=== PATIENT | female | born 1940 | race Two or more races ===

== ENCOUNTER → 2019-10-10 | Outpatient (CLI) | payer OTHER ==
[~2019-10-10] VITALS: Ht 162.6 cm; Wt 59.0 kg
[~2019-10-10] MED LIST: ATORVASTATIN CA40 MG; CYCLOBENZAPRINE5 MG PO; EPANED1 MG/1 M1; GLIMEPIRIDE2 MG; NEURONTIN300 MG
== END | disposition home or self-care (01) ==
LOC: OFIC 805 10:45 → TOM 11:05 → OFIC 805 11:05
PROVIDERS: ATTEND Otolaryngology
DX: M26.69 Other specified disorders of temporomandibular joint (principal); H92.02 Otalgia, left ear

== ENCOUNTER → 2019-10-10 | Outpatient (CLI) | payer OTHER | END | disposition home or self-care (01) | LOC: TOM 11:58 | PROVIDERS: ATTEND Otolaryngology | DX: M26.69 Other specified disorders of temporomandibular joint (principal) ==

== ENCOUNTER 2019-10-31 12:41 | Outpatient (CLI) | payer OTHER | END 2019-10-31 19:00 | disposition home or self-care (01) | LOC: OFIC 805 12:41 | PROVIDERS: ATTEND Otolaryngology | DX: H92.02 Otalgia, left ear (principal); M26.69 Other specified disorders of temporomandibular joint ==